=== PATIENT | female | born 1995 | race Caucasian/White ===

== ENCOUNTER → 2017-10-11 | Emergency (ER) | payer OTHER ==
[~2017-10-11] VITALS: Ht 167.6 cm; Wt 90.7 kg
[~2017-10-11] MED LIST: AVIANE1 EACH PO; COMPAZINE25 MG PR; CRYSELLE1 EACH PO; CYCLOBENZAPRINE5 MG PO; IMITREX25 MG PO; MAXALT MLT10 MG PO; MEDROL4 MG PO; NORCO 5-325 TA1 EACH PO; NORTRIPTYLINE H10 MG PO; OXYCODONE-ACET1 EAC1 PO; PHENERGAN12.5 MG RC; PROPRANOLOL HCL20 MG PO; REGLAN10 MG PO; TRAZODONE HCL100 MG PO; ULTRAM50 MG PO; ZOFRAN ODT4 MG PO
== END ==
LOC: ED 13:38
DX: M62.830 Muscle spasm of back (principal); Z91.030 Bee allergy status; Z88.5 Allergy status to narcotic agent; Z79.899 Other long term (current) drug therapy
CPT/HCPCS: 72100; 96372; 99283; J1885

== ENCOUNTER 2018-08-29 12:12 | Day surgery (SDC) | payer OTHER ==
[~2018-08-29] VITALS: Ht 167.6 cm; Wt 103.0 kg
--- NOTE | 2018-08-29 13:47 | NUR ---
08/29/18 1347 Arlene Alex 1342-PATIENT ARRIVED TO PACU ON 2L NC PATIENT AWAKE DROWSY DENIES PAIN OR NAUSEA. ABLE TO REPOSITION SELF IN BED. RR EVEN. ENCOURAGED TO PASS GAS.
--- NOTE | 2018-08-31 11:43 | OR ---
[facility] [address], [place] [address] Signed DATE OF OPERATION: 08/29/2018 SURGEON: Antonia Lorenzo MD PREOPERATIVE DIAGNOSES: 1. Recently persistent nausea and vomiting (postprandial with negative CT scan and negative ultrasound). 2. History of normal gastric emptying study. 3. Empiric treatment with low-FODMAP diet with improvement. 4. Decreasing symptoms of diarrhea and left lower abdominal pain. POSTOPERATIVE DIAGNOSES: 1. Normal upper endoscopy, minimally mild antral gastritis, no sign of ulcer. 2. Normal colon and ileum (ileal lymphoid hyperplasia without pathologic findings). PROCEDURES PERFORMED: 1. Esophagogastroduodenoscopy with biopsy. 2. Total colonoscopy to cecum with biopsy of ileum, colon, and rectum. ANESTHESIA: Intravenous sedation, fentanyl 200 mcg and Versed 10 mg. INDICATION: This 23-year-old white woman is a patient of LEXUS Marquez, and works part-time as a clinical nursing manager at [employer]. She has had longstanding episodic diarrhea with left lower abdominal pain as well as some episodes of upper abdominal pain, particularly left upper quadrant. She has been evaluated in [address] Corrales, social research assistant in [facility]. She has undergone upper endoscopy and colonoscopy. Colonoscopy normal and upper endoscopy showing some retained food in the stomach with a clinical diagnosis of possible gastric emptying problems. A solid fit emptying study however was normal. Nevertheless, she was treated as if she had a solid food emptying problem and failed domperidone treatment as well as other medications. Her last evaluation by social research assistant was in 2017. 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 She is admitted at this time to undergo upper endoscopy and colonoscopy to assess for inflammatory bowel disease, peptic disease, or other problem that may account for persistent symptoms. Most notably recently, her main problem is postprandial nausea and vomiting. Electronically Signed By: ANTONIA LORENZO MD 08/31/18 1143 PATIENT NAME: WONG TREVIÑO OPERATIVE REPORT DATE OF : [birth year] REPORT #: [id number] PHYSICIAN: ANTONIA LORENZO MD PCP: SAI DEAN PAC REPORT IS CONFIDENTIAL AND NOT TO BE RELEASED WITHOUT AUTHORIZATION [facility] [address], [place] [address] Signed FINDINGS: Upper endoscopy was essentially normal. The flap valve was reasonably good. There was mild antral gastritis. Certainly, no ulcer, no neoplasm, no varices. I saw no obvious signs of dysmotility, specifically no bezoar, but there was a small amount of bile in the stomach initially. On colonoscopy, the prep was quite good. Complete colonoscopy was undertaken to the cecum. Intubation of the ileum was accomplished as well. The ileum had lymphoid hyperplasia, but no sign of inflammatory bowel disease. The remaining colon and rectum were normal. Random biopsies were taken to assess for lymphocytic colitis. DESCRIPTION OF PROCEDURE: The patient was brought to the endoscopy suite and given topical Hurricaine spray, hypopharyngeal anesthesia, and placed in lateral decubitus position. She was given intravenous sedation to the point of slurred speech and nystagmus with full cardiopulmonary monitoring. Additional sedation was given as needed throughout both procedures. A bite block was placed and an Olympus video upper endoscope passed in the hypopharynx. The vocal cords appeared normal. Scope was advanced into the esophagus. Throughout its length, the esophagus was normal. There was no sign of Sunshine epithelium, stricture, neoplasm, or varices. The scope was advanced to the stomach, which was insufflated with air. There was small amount of bile within the stomach, which was suctioned free. There was no sign of retained food or bezoar. There was a fine reticular pattern of the antrum suggestive of mild chronic gastritis, but nothing serious and certainly no ulceration or neoplasm. Pylorus was normal. Scope was passed through into the duodenum, which was normal. Biopsies were taken there to assess for celiac disease. The scope was withdrawn to the antrum and biopsies obtained once again for both CATHY and pathologic testing. Retroflexed view was undertaken. Withdrawal of scope showing a reasonably good flap valve. No sign of large hiatal hernia. The scope was withdrawn to the distal esophagus and biopsies were taken of normal esophageal mucosa. The midportion was biopsied as well. The scope was removed and plans were made for colonoscopy. The table was rotated and additional sedation given. Digital rectal examination was essentially normal. An Olympus video colonoscope was passed into the rectum and manipulated throughout the colon ultimately intubating the cecum itself. She was somewhat uncomfortable with passage of the scope in certain areas, particularly the sigmoid, for which additional sedation was given. Once the cecum was obtained, photographs were taken and biopsies Electronically Signed By: ANTONIA LORENZO MD 08/31/18 1143 PATIENT NAME: WONG TREVIÑO OPERATIVE REPORT DATE OF : [birth year] REPORT #: [id number] PHYSICIAN: ANTONIA LORENZO MD PCP: SAI DEAN PAC REPORT IS CONFIDENTIAL AND NOT TO BE RELEASED WITHOUT AUTHORIZATION [place] [phone] Signed taken of the cecum. With minimal effort, the ileum was ultimately intubated showing lymphoid hyperplasia. The scope was passed at least 10 cm into the ileum. There was no sign of stricture, neoplasm, or ulceration. Scope was withdrawn to the cecum and after biopsies had occurred scope further withdrawn. The remaining colon was entirely normal without sign of polyps, diverticular formation, or cancer. Biopsy was taken of the rectum to assess for lymphocytic colitis. There was minimal internal hemorrhoidal change, no sign of bleeding or other problem. Scope was straightened and withdrawn, removed, and the patient was taken to recovery room in good condition. CONCLUDING DIAGNOSIS: Though she may likely have irritable bowel syndrome, diarrhea predominant, I do wonder somewhat about her gallbladder still. Consideration will be made for a CCK-HIDA test as her ultrasound of the gallbladder has been normal as has been a gastric emptying study. MD JADA Sanders/ANN MARIE /[id number] cc: LEXUS Marquez Copies: ~ Electronically Signed By: ANTONIA LORENZO MD 08/31/18 1143 PATIENT NAME: WONG TREVIÑO DOMINGUEZ OPERATIVE REPORT DATE OF : [birth year] REPORT #: [id number] PHYSICIAN: ANTONIA LORENZO MD PCP: SAI DEAN PAC REPORT IS CONFIDENTIAL AND NOT TO BE RELEASED WITHOUT AUTHORIZATION
== END 2018-08-29 14:48 | disposition home or self-care (01) ==
LOC: OPS 12:12 → DS 12:12 → OPS 13:00
PROVIDERS: Surgery
PROC: 0DBP8ZX Excision of Rectum, Via Natural or Artificial Opening Endoscopic, Diagnostic (ICD-10-PCS; 2018-08-29)
PROC: 0DBB8ZX Excision of Ileum, Via Natural or Artificial Opening Endoscopic, Diagnostic (ICD-10-PCS; 2018-08-29)
PROC: 0DBM8ZX Excision of Descending Colon, Via Natural or Artificial Opening Endoscopic, Diagnostic (ICD-10-PCS; 2018-08-29)
PROC: 0DB98ZX Excision of Duodenum, Via Natural or Artificial Opening Endoscopic, Diagnostic (ICD-10-PCS; 2018-08-29)
PROC: 0DB78ZX Excision of Stomach, Pylorus, Via Natural or Artificial Opening Endoscopic, Diagnostic (ICD-10-PCS; 2018-08-29)
PROC: 0DB28ZX Excision of Middle Esophagus, Via Natural or Artificial Opening Endoscopic, Diagnostic (ICD-10-PCS; 2018-08-29)
PROC: 0DB38ZX Excision of Lower Esophagus, Via Natural or Artificial Opening Endoscopic, Diagnostic (ICD-10-PCS; 2018-08-29)
PROC: 0DBH8ZX Excision of Cecum, Via Natural or Artificial Opening Endoscopic, Diagnostic (ICD-10-PCS; principal; 2018-08-29 13:00)
PROC: 0DBN8ZX Excision of Sigmoid Colon, Via Natural or Artificial Opening Endoscopic, Diagnostic (ICD-10-PCS; 2018-08-29 13:00)
DX: R19.7 Diarrhea, unspecified (principal); K29.70 Gastritis, unspecified, without bleeding; K63.89 Other specified diseases of intestine; F32.9 Major depressive disorder, single episode, unspecified; I10 Essential (primary) hypertension; G43.909 Migraine, unspecified, not intractable, without status migrainosus; Z88.5 Allergy status to narcotic agent; Z98.890 Other specified postprocedural states
CPT/HCPCS: 99153; G0500; J2250; J3010; J7120

== ENCOUNTER 2018-10-17 05:45 | Day surgery (SDC) | payer OTHER ==
[~2018-10-17] VITALS: Ht 167.6 cm; Wt 99.8 kg
[2018-10-17] MEDS ORDERED: OMEPRAZOLE MAGN20 MG PO (06:07)
--- NOTE | 2018-10-17 08:59 | NUR ---
10/17/18 0859 Arlene Alex 0850-PATIENT ARRIVED TO PACU ON RA. RR 24 PATIENT REACTIVE TO VOICE OPENS EYES PUPILS DILATED. PATIENT SHAKES HEAD NO TO PAIN. 4 LAP SITES TO ABDOMEN CDI BANDAID TO RLQ SITE. ST.
[2018-10-17] MEDS ORDERED: IBUPROFEN600 MG PO (09:01)
[2018-10-17] MEDS ORDERED: MAPAP325 MG PO (09:01)
[2018-10-17] MEDS ORDERED: OXYCODON-ACETA1 EAC2 PO (09:02)
--- NOTE | 2018-10-17 09:43 | NUR ---
PT IS BACK TO FROM PACU. SHE IS AWAKE, REPORTIN LEFT SHOULDER PAIN. MOM IS AT THE BEDSIDE, MASSAGING LEFT SHOULDER, PT STATES THIS IS HELPFUL WITH THE PAIN. SHE REPORTS PAIN A 4/10 IN HER ABDOMEN, BUT STATES THAT THIS IS A TOLERABEL LEVEL. SHE IS ABLE TO TAKE SIPS OF WATER WITHOUT NAUSEA. CALL LIGHT WITHIN REACH. NO ADDITIONAL NEEDS AT THIS TIME. WILL CONTINUE TO MONITOR. DC INSTRUCTIONS ARE DISCUSSED WITH PT AND MOM.
--- NOTE | 2018-10-17 10:47 | NUR ---
LE 1030: PT IS ASSISTED UP OOB TO THE BATHROOM. SHE IS ABLE TO VOID 250ML OF YELLOW URINE. SHE AMBULATES BY HERSELF BACK TO HER ROOM. SHE HAS MASHED POTATOES AND GRAVY. DEFERRING HOURLY VITAL SIGNS TO LET HER EAT, THEN WILL CHECK ON HER. BOYFRIEND, AUDREY, IS AT THE BEDSIDE. CALL LIGHT WITHIN REACH.
--- NOTE | 2018-10-17 11:07 | NUR ---
PT REPORTS THAT PAIN IS IMPROVING. HER BOYFRIEND AND FRIEND ARE AT THE BEDSIDE. CALL LIGHT WITHIN REACH. PT IS HAVING A HARD TIME EATING HER MASHED POTATOES, STATES IT IS UNCOMFORTABLE/PAIN TO SIT FORWARD TO EAT THEM. NO ADDITIONAL NEEDS AT THIS TIME. WILL CONTINUE TO MONITOR.
--- NOTE | 2018-10-17 11:08 | NUR ---
PT INDICATES THAT SHE IS READY TO GO HOME.
--- NOTE | 2018-10-17 11:35 | NUR ---
PT'S ABDOMINAL SITES ARE REINFORCED WITH GAUZE AND PAPER TAPE. SHE IS GIVEN VERBAL DC INSTRUCTIONS, SHE VERBALIZES UNDERSTANDING. QUESTIONS ARE ASKED AND ANSWERED. SHE TRANSFERS HERSELF FROM STRETCHER TO WC, SHE ALSO TRANSFERS HERSELF FROM WC TO VEHICLE.
--- NOTE | 2018-10-17 18:42 | OR ---
[facility] [address] [place], [place] [address] Signed DATE OF OPERATION: 10/17/2018 SURGEON: Antonia Lorenzo MD PREOPERATIVE DIAGNOSES: 1. Chronic acalculous cholecystitis. 2. Obesity. POSTOPERATIVE DIAGNOSES: 1. Chronic acalculous cholecystitis. 2. Obesity. 3. Very small gallbladder with "strawberry mucosa.". PROCEDURES PERFORMED: 1. Laparoscopic cholecystectomy with intraoperative cholangiogram. 2. Surgeon-directed fluoroscopy. ANESTHESIA: General endotracheal; Jess Jose Armando, ROD TAPE OPERATOR; and local 20 mL of 0.25% Marcaine with epinephrine. 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 She has had problems of postprandial nausea and bloating and upper abdominal pain. She has undergone upper endoscopy and colonoscopy. She was previously ascribed to have gastroparesis elsewhere though a solid food emptying study was normal. She has recently undergone CCK-HIDA test, which showed an ejection fraction of 25% with reproduction of her symptoms of nausea and vomiting. It is notable that she has multiple family members with biliary disease. She is admitted at this time to undergo cholecystectomy for presumed acalculous cholecystitis understand well the risks of bleeding, infection, bile duct injury, need for open procedure, and of course failure to cure her symptoms. She understands and she wished to proceed. FINDINGS: The liver was somewhat fatty infiltrated without nodular changes in any way. The gallbladder was impressively small. Indeed, it was only the size of a medium sized strawberry itself. The gallbladder once excised did show strawberry mucosa (intense cholesterolosis). There were no stones. Cholangiogram was normal. There were no other findings of concern on intraabdominal examination. Electronically Signed By: ANTONIA LORENZO MD 10/17/18 1842 PATIENT NAME: WONG TREVIÑO OPERATIVE REPORT DATE OF : [birth year] REPORT #: [id number] PHYSICIAN: ANTONIA LORENZO MD PCP: SAI DEAN PAC REPORT IS CONFIDENTIAL AND NOT TO BE RELEASED WITHOUT AUTHORIZATION [facility] [address] [place], [place] [address] Signed DESCRIPTION OF PROCEDURE: The patient was brought to the operating room and given a general endotracheal anesthetic. Preoperative antibiotic Ancef was given and sequential compression device stockings used. After satisfactory anesthesia, the abdomen was prepared with a chlorhexidine solution and draped sterilely. An infraumbilical incision was made using an open Juana cannula technique. Pneumoperitoneum was achieved to a level of 14 mmHg of carbon dioxide gas. Intraabdominal inspection showed no sign of ascites or carcinomatosis. The gallbladder was impressively small. The liver had mild fatty infiltration. Three additional trocars were placed in usual configuration in the subxiphoid, right midclavicular, and right axillary line. The gallbladder was elevated cephalad and retracted laterally. With meticulous technique using a hook retractor, dissection of triangle of Calot was undertaken. Cystic arterial branch was identified, doubly clipped and divided. Ultimately, the cystic duct was well identified. Puncture of the gallbladder did allow for egress of clear bile, which was limited in its amount. A clip was applied across the gallbladder and cystic duct junction, and a transverse choledochotomy was made in the cystic duct. Retrograde milking of the duct showed a small amount of bile. Using the Caal type cholangiocatheter, intraoperative cholangiography was undertaken showing free flow of contrast in the biliary tree with prompt emptying into the duodenum. There was no sign of biliary anomaly or other problem. The cystic duct was triply clipped and divided, and the gallbladder dissected free in a retrograde fashion using electrocautery. The gallbladder was placed in an endobag and extracted through the infraumbilical port site without problem and examined on the back table affirming its very small size. The gallbladder was opened and a "strawberry mucosa" was noted with multiple nodular changes with cholesterolosis consistent with chronic cholecystitis. Irrigation was undertaken in subhepatic space. Once irrigation fluid was completely clear and freed, trocars were removed under direct visualization showing no sign of bleeding. The infraumbilical fascial incision was reapproximated with interrupted 0 Vicryl suture. All wounds were copiously irrigated with saline solution. Skin closed with interrupted 3-0 Vicryl. Steri-Strips were applied. The patient was ultimately extubated and transferred to recovery in good condition having suffered no complication. Sponge, needle, and counts reported as correct x3. Antonia Lorenzo MD /ZULEIKAL /[id number] Electronically Signed By: ANTONIA LORENZO MD 10/17/18 1842 PATIENT NAME: WONG TREVIÑO OPERATIVE REPORT DATE OF : [birth year] REPORT #: [id number] PHYSICIAN: ANTONIA LORENZO MD PCP: SAI DEAN PAC REPORT IS CONFIDENTIAL AND NOT TO BE RELEASED WITHOUT AUTHORIZATION [place] [phone] Signed cc: LEXUS Junior Copies: ~ Electronically Signed By: ANTONIA LORENZO MD 10/17/18 1842 PATIENT NAME: WONG TREVIÑO OPERATIVE REPORT DATE OF : [birth year] REPORT #: [id number] PHYSICIAN: ANTONIA LORENZO MD PCP: SAI DEAN PAC REPORT IS CONFIDENTIAL AND NOT TO BE RELEASED WITHOUT AUTHORIZATION
== END 2018-10-17 11:20 | disposition home or self-care (01) ==
LOC: DS 05:45
PROVIDERS: Surgery
PROC: BF13YZZ Fluoroscopy of Gallbladder and Bile Ducts using Other Contrast (ICD-10-PCS; 2018-10-17)
PROC: 0FT44ZZ Resection of Gallbladder, Percutaneous Endoscopic Approach (ICD-10-PCS; principal; 2018-10-17 06:45)
DX: K81.1 Chronic cholecystitis (principal); K76.0 Fatty (change of) liver, not elsewhere classified; I10 Essential (primary) hypertension; K21.9 Gastro-esophageal reflux disease without esophagitis; G43.909 Migraine, unspecified, not intractable, without status migrainosus; E66.3 Overweight; F33.8 Other recurrent depressive disorders; Z88.5 Allergy status to narcotic agent; Z83.79 Family history of other diseases of the digestive system; Z68.35 Body mass index [BMI] 35.0-35.9, adult; Z79.899 Other long term (current) drug therapy
CPT/HCPCS: 00790; 74300; J0131; J0690; J0735; J1100; J1644; J1885; J2250; J2405; J2704; J3010; J3475; J7120; Q9967

== ENCOUNTER 2019-12-30 18:22 | Emergency (ER) | payer OTHER ==
[~2019-12-30] VITALS: Ht 167.6 cm; Wt 99.8 kg
[~2019-12-30 18:22] MED LIST changes: +IBUPROFEN600 MG PO; +MAPAP325 MG PO; +OMEPRAZOLE MAGN20 MG PO; +OXYCODON-ACETA1 EAC2 PO
[2019-12-30] MEDS ORDERED: ULTRAM50 MG PO (20:10)
== END 2019-12-30 20:24 | disposition home or self-care (01) ==
LOC: ED 18:22
DX: S46.912A Strain of unspecified muscle, fascia and tendon at shoulder and upper arm level, left arm, initial encounter (principal); Z88.6 Allergy status to analgesic agent; Z91.030 Bee allergy status; Z79.899 Other long term (current) drug therapy; X58.XXXA Exposure to other specified factors, initial encounter
CPT/HCPCS: 73030; 99283-25

== ENCOUNTER 2023-06-29 | Inpatient (IN) | payer BC ==
[~2023-06-29] VITALS: Ht 167.6 cm; Wt 117.9 kg
--- NOTE | ~2023-06-29 | OR ---
[facility] [address] [place], [place] [address] Draft DATE OF OPERATION: 06/30/2023 SURGEON: Alysia Molina MD FAMILY LAW PARALEGAL: Bradford Abbott DO PREOPERATIVE DIAGNOSIS: Intrauterine at 39.5 weeks, gestational hypertension, failure to descend, persistent OP. POSTOPERATIVE DIAGNOSIS: Intrauterine at 39.5 weeks, gestational hypertension, failure to descend, persistent OP, delivered. PROCEDURE: Primary section of a lower segment transverse uterine incision. ANESTHESIA: Spinal. ESTIMATED BLOOD LOSS: 850 mL. DRAINS: Jha catheter. INDICATIONS AND FINDINGS: The patient is a 3, para 0, SAB 2, who was admitted at 39 and 4/7th weeks for induction secondary to gestational hypertension. She received several doses of Cytotec and with that, developed a regular contraction pattern and progressed with her cervix being now 3 cm. She underwent artificial rupture of membranes. Clear fluid was seen. She then progressed steadily through her labor and reached complete and began pushing at that time. She had been going natural other than a short time of nitrous. She pushed with extremely good effort for over 3 hours, but the baby did not descend beyond +1 station. Also, the baby was developing some recurrent variables and the decision was made to proceed with a section. It was not felt safe to undergo a vacuum delivery. She was taken to the operating room where she was delivered of a little boy from the ROP position with Apgars of 7 and 9 and weight of 8 pounds. There was bilateral extensions of the uterine incision, but otherwise the uterus, tubes, ovaries, PATIENT NAME: WONG GARZA OPERATIVE REPORT DATE OF : [birth year] REPORT #: [id number] PHYSICIAN: ALYSIA MOLINA MD PCP: SAI DEAN PAC REPORT IS CONFIDENTIAL AND NOT TO BE RELEASED WITHOUT AUTHORIZATION [facility] [address] [place], [place] [address] Draft placenta were normal. DESCRIPTION OF PROCEDURE: The patient was prepped and draped in the supine position. A Pfannenstiel skin incision was made and carried down through the fascia. The incision was extended laterally. The inferior and superior fascial flaps were then created. The muscles were bluntly divided and the peritoneum opened bluntly and the incision extended bluntly. The Janak retractor was placed. The uterine incision was made at the upper aspect of the peritoneal reflection. The baby was delivered with some difficulty, given its deep station, but was handed off to the pediatric staff in attendance. There was thick meconium on entering the uterus. The placenta was removed manually and the uterus explored with a lap tape assuring no remaining fragments. The edges of the incision were identified and the bilateral extensions noted. These were separately closed. The extensions were identified and running locking stitches of 0 Monocryl were used to bring the extensions up to the original incision. This was done bilaterally. Following this, remaining uterine incision was closed with a running locking stitch of 0 Monocryl. A 2nd layer was placed using the 0 Monocryl in an imbricating manner. The area was copiously irrigated, inspected, and there was a bleeding point still on the patient's right side and another suture of 0 Monocryl was placed and ligating the uterine arteries. Following this, the abdomen was irrigated, inspected, good hemostasis was noted. Some bleeding points on the peritoneal edge were controlled with cautery. Because of the extensions, Luis Miguel was used in these areas as well as along the uterine incision to aid in hemostasis. The retractor was removed and the peritoneum identified. The peritoneum was closed with a running suture of 3-0 Vicryl. The muscles were brought together in the midline with interrupted sutures of 0 Vicryl. Bleeding points were controlled with cautery. This layer was irrigated, inspected and good hemostasis noted. The remaining Luis Miguel was sprinkled over the muscle to further aid in hemostasis. The fascia was closed from each angle to the midline with a running suture of 0 Vicryl. The subcu space was irrigated and bleeding points controlled with cautery. The space was closed with interrupted sutures of 3-0 Vicryl. The skin was closed with sunny. All sponge and needle counts were correct. She tolerated the procedure well and was taken to the recovery room in good condition. MD HARDIK Chamberlain/MODL /[id number] PATIENT NAME: WONG GARZA OPERATIVE REPORT DATE OF : [birth year] REPORT #: [id number] PHYSICIAN: ALYSIA MOLINA MD PCP: SAI DEAN PAC REPORT IS CONFIDENTIAL AND NOT TO BE RELEASED WITHOUT AUTHORIZATION [address] [address] Draft Copies: ~ PATIENT NAME: WONG GARZA DOMINGUEZ OPERATIVE REPORT DATE OF : [birth year] REPORT #: [id number] PHYSICIAN: ALYSIA MOLINA MD PCP: SAI DEAN PAC REPORT IS CONFIDENTIAL AND NOT TO BE RELEASED WITHOUT AUTHORIZATION
[2023-06-29 00:37] LABS: HEMATOCRIT 38.6 % (35.0-50.0); HEMOGLOBIN 13.2 g/dL (12.0-18.0); MCH 27.9 (27-36); MCHC 34.1 g/dl (30-36); MCV 81.7 fl (81-99); RBC 4.72 M/ul (4.3-5.7)
[2023-06-29 01:14] LABS: AMPHETAMINES, URINE NEGATIVE (NEGATIVE); BARBITURATES, URINE NEGATIVE (NEGATIVE); BENZODIAZEPINE, URINE NEGATIVE (NEGATIVE); BUPRENORPHINE, URINE NEGATIVE (NEGATIVE); CANNABINOID, URINE NEGATIVE (NEGATIVE); COCAINE, URINE NEGATIVE (NEGATIVE); ECSTASY, URINE NEGATIVE (NEGATIVE); FENTANYL, URINE NEGATIVE (NEGATIVE); METHADONE, URINE NEGATIVE (NEGATIVE); OPIATES, URINE NEGATIVE (NEGATIVE); OXYCODONE, URINE NEGATIVE (NEGATIVE); PHENCYCLIDINE, URINE NEGATIVE (NEGATIVE)
[2023-06-29 03:12] LABS: ABO A; RH NEGATIVE
[2023-06-29 03:13] LABS: ANTIBODY SCREEN POSITIVE
[2023-06-29 06:15] LABS: ANTIBODY IDENTIFICATION SEE COMMENTS
[2023-06-29 07:00] VITALS: BP 125/82
--- NOTE | 2023-06-29 13:30 | PR ---
[facility] [address] [facility] [place], [place] [address] Signed Progress Notes IP Datetime Report Generated by DAMARIS: 06/29/2023 13:30 PROGRESS NOTES: [id number] Impression: Normal Progression of Labor; Reassuring Heart Rate Procedures: Artificial ROM; Sterile Vag Exam Plan: Continue Present Management VITAL SIGNS: [id number] Vital Signs: Reviewed; Within Normal Limits EXAM: [id number] Dilatation: 3.0 Effacement: 80 Station: -2 Contractions: q 1 to 4 min MEMBRANES: [id number] Comments: Getting more uncomfortable. She is progressing. FETUS A: [id number] FHR Baseline: 130 Variability: Moderate 6-25bpm Accelerations: 15X15 Decelerations: None FHR Category: Category I Presentation: Vertex FETUS B: [id number] Signing Physician: Alysia Molina MD Copies: ~ *Electronically Signed* 06/29/23 1330 ALYSIA MOLINA MD PATIENT NAME: WONG GARZA PROGRESS NOTE DATE OF : [birth year] PHYSICIAN: ALYSIA MOLINA MD RPT #: [id number] REPORT IS CONFIDENTIAL AND NOT TO BE RELEASED WITHOUT AUTHORIZATION
--- NOTE | 2023-06-29 18:00 | PR ---
[facility] [address] [facility] [place], [place] [address] Signed Progress Notes IP Datetime Report Generated by CPSavita: 06/29/2023 18:00 PROGRESS NOTES: [id number] Impression: Normal Progression of Labor Procedures: Sterile Vag Exam Plan: Continue Present Management VITAL SIGNS: [id number] Vital Signs: Reviewed; Within Normal Limits EXAM: [id number] Dilatation: 4.5 Effacement: 100 Station: -2 Contractions: q 2 to 3 min MEMBRANES: [id number] Comments: Getting more uncomfortable. Progressing some. Will try the tub again. FETUS A: [id number] FHR Baseline: 130 Variability: Moderate 6-25bpm Accelerations: 15X15 Decelerations: None FHR Category: Category I Presentation: Vertex FETUS B: [id number] Signing Physician: Alysia Molina MD Copies: ~ *Electronically Signed* 06/29/23 1800 ALYSIA MOLINA MD PATIENT NAME: WONG GARZA PROGRESS NOTE DATE OF : [birth year] PHYSICIAN: ALYSIA MOLINA MD RPT #: [id number] REPORT IS CONFIDENTIAL AND NOT TO BE RELEASED WITHOUT AUTHORIZATION
--- NOTE | 2023-06-29 23:36 | PR ---
[facility] [address] [facility] [place], [place] [address] Signed Progress Notes IP Datetime Report Generated by CPSavita: 06/29/2023 23:36 PROGRESS NOTES: [id number] Impression: Normal Progression of Labor Procedures: Sterile Vag Exam Plan: Continue Present Management Other Plans: trial nitrous VITAL SIGNS: [id number] Vital Signs: Reviewed; Within Normal Limits EXAM: [id number] Dilatation: 4.5 Effacement: 100 Station: 0 Contractions: q 2 to 3 min MEMBRANES: [id number] Comments: Has progressed well but unable to stop involuntarily pushing. The remaining cervix cannot be reduced. She has been doing natural labor and has done well but because of the involuntary pushing, I think this is contributing to the cervical swelling. Will try nitrous to see if this can help avoid the pushing and allow her to get to complete. FETUS A: [id number] FHR Baseline: 130 Variability: Moderate 6-25bpm Accelerations: 15X15 Decelerations: Early; Variable FHR Category: Category II Presentation: Vertex FETUS B: [id number] Signing Physician: Alysia Molina MD Copies: ~ *Electronically Signed* 06/29/23 2336 ALYSIA MOLINA MD PATIENT NAME: WONG GARZA PROGRESS NOTE DATE OF : [birth year] PHYSICIAN: ALYSIA MOLINA MD RPT #: [id number] REPORT IS CONFIDENTIAL AND NOT TO BE RELEASED WITHOUT AUTHORIZATION
--- NOTE | 2023-06-30 03:05 | PR ---
[facility] [address] [place], [place] [address] Signed Progress Notes IP Datetime Report Generated by CPN: 06/30/2023 03:05 PROGRESS NOTES: [id number] Impression: Reassuring Heart Rate Other Impressions: failure to descend Procedures: Sterile Vag Exam Plan: Deliver- Section Other Plans: trial nitrous Informed Consent Obtain: Section Delivery VITAL SIGNS: [id number] Vital Signs: Reviewed; Within Normal Limits EXAM: [id number] Dilatation: 10.0 Effacement: 100 Station: 0 Contractions: q 2 to 3 min MEMBRANES: [id number] Comments: Pushing with excellent effort but minimal descent after pushing for over 2 hrs. I do not feel comfortable using vacuum at this station. I feel section is safest route. PARQ done with pt and . Will proceed as soon as OR crew arrives. FETUS A: [id number] FHR Baseline: 130 Variability: Moderate 6-25bpm Accelerations: 15X15 Decelerations: Variable FHR Category: Category II Presentation: Vertex FETUS B: [id number] Signing Physician: Alysia Molina MD Copies: ~ *Electronically Signed* 06/30/23 030 ALYSIA MOLINA MD PATIENT NAME: WONG GARZA PROGRESS NOTE DATE OF : [birth year] PHYSICIAN: ALYSIA MOLINA MD RPT #: [id number] REPORT IS CONFIDENTIAL AND NOT TO BE RELEASED WITHOUT AUTHORIZATION
--- NOTE | 2023-06-30 05:23 | NUR ---
06/30/23 0523 Teagan Zaidi 0456- PT TO ROOM VIA BED FROM OR. PT IS A&O X4. PT RESPIRATIONS EVEN AND UNLABORED, O2 >90% VIA PULSE OX. PT REPORTS NO PAIN, NAUSEA, DIZZINESS, OR SOB. IV SITE WNL, FLUIDS INFUSING DIRECTED. SCD'S IN PLACE, YUN DRAINING TO GRAVITY. FUNDAL CHECK PERFORMED W/MILK RECEIVER. Cesar QUIROZ MD IN ROOM DISCUSSING OPERATION W/PT. PT AWAKE AND ASKING QUESTIONS APPROPRIATELY, AT BEDSIDE W/BABY. RESPIRATIONS EVEN AND UNLABORED, NO SIGNS OF DISTRESS. 0518- BABY TO CHEST FOR SKIN TO SKIN WITH MOTHER. PT REPORTS NO PAIN, NAUSEA, DIZZINESS, OR SOB AT THIS TIME. PT REPORTS MINOR TINGLING IN RT LEG BUT UNABLE TO WIGGLE TOES AT THIS TIME. RESPIRATIONS EVEN AND UNLABORED, NO SIGNS OF DISTRESS.
[2023-06-30 05:34] VITALS: BP 141/65
[2023-07-01 05:27] LABS: HEMATOCRIT 29.6 % (35.0-50.0); MCH 28.1 (27-36); MCV 82.7 fl (81-99); RBC 3.58 M/ul (4.3-5.7); RDW 14.8 (10.5-15.0)
[2023-07-01 06:22] LABS: ABO A
[2023-07-01 06:23] LABS: ANTIBODY SCREEN NEGATIVE; FETAL HEMOGLOBIN SCREEN NEGATIVE; RH NEGATIVE
[2023-07-01 06:27] LABS: RHIG DOSE 1; RHIG STATUS CANIDATE
--- NOTE | 2023-07-01 10:12 | PR ---
[facility] [address] [place], [place] [address] Signed PP Progress Notes Datetime Report Generated by CPN: 07/01/2023 10:12 SUBJECTIVE: [id number] Pain: Within Normal Limits Nausea/Vomiting: Denies Vital Signs: [id number] Vital Signs: Reviewed; Within Normal Limits EXAM: Ongoing Cardiovascular: Normal Respiratory: Normal Abdomen/Uterus: Abnormal Lochia: Normal Vulva/Perineum: Not Done Breasts: Not Done CVA Tenderness: Not Done Extremities: Normal Incision: Normal Progress: Abnormal Exam Comments: Abdomen with active BS. Fundus firm, NT @ U-1. H/H 05/27.6, WBC 18.6k, plat 281k IMPRESSION/PLAN/PROCEDURES: [id number] Impression: Normal Progression Plan: Continue Present Management Procedures: Rhogam Progress Notes: Doing well overall. She is trying to pump exclusively but not c/w pumping. Has used a friend's breast milk as baby did not like the formula. She is encouraged to pump more consistently and frequently and to push her fluids. Signing Physician: Alysia Molina MD Copies: ~ *Electronically Signed* 07/01/23 1012 ALYSIA MOLINA MD PATIENT NAME: WONG GARZA PROGRESS NOTE DATE OF : [birth year] PHYSICIAN: ALYSIA MOLINA MD RPT #: [id number] REPORT IS CONFIDENTIAL AND NOT TO BE RELEASED WITHOUT AUTHORIZATION
--- NOTE | 2023-07-02 08:38 | PR ---
[facility] [address] [facility] [place], [place] [address] Signed PP Progress Notes Datetime Report Generated by CPN: 07/02/2023 08:38 SUBJECTIVE: [id number] Pain: Within Normal Limits Nausea/Vomiting: Denies Flatus: Yes Bowel Movement: Yes Vital Signs: [id number] Vital Signs: Reviewed; Within Normal Limits EXAM: Ongoing Cardiovascular: Not Done Respiratory: Not Done Abdomen/Uterus: Abnormal Lochia: Normal Vulva/Perineum: Not Done Breasts: Not Done CVA Tenderness: Not Done Extremities: Normal Incision: Normal Progress: Normal Exam Comments: Abdomen with active BS. Fundus firm, NT @ U-2. IMPRESSION/PLAN/PROCEDURES: [id number] Impression: Normal Progression Plan: Remove [place]; Discharge Procedures: Rhogam Progress Notes: Doing well. She is ready for D/C. Signing Physician: Alysia Molina MD Copies: ~ *Electronically Signed* 07/02/23837 ALYSIA MOLINA MD PATIENT NAME: WONG GARZA DOMINGUEZ PROGRESS NOTE DATE OF : [birth year] PHYSICIAN: ALYSIA MOLINA MD RPT #: [id number] REPORT IS CONFIDENTIAL AND NOT TO BE RELEASED WITHOUT AUTHORIZATION
== END 2023-07-02 10:55 | disposition home or self-care (01) | DRG 788 ==
LOC: FBC
PROVIDERS: Obstetrics & Gynecology; ADMIT Obstetrics & Gynecology; ATTEND Obstetrics & Gynecology
PROC: 3E0P7VZ Introduction of Hormone into Female Reproductive, Via Natural or Artificial Opening (ICD-10-PCS; 2023-06-30)
PROC: 10907ZC Drainage of Amniotic Fluid, Therapeutic from Products of Conception, Via Natural or Artificial Opening (ICD-10-PCS; 2023-06-30)
PROC: 10D00Z1 Extraction of Products of Conception, Low, Open Approach (ICD-10-PCS; principal; 2023-06-30 03:45)
DX: O13.4 Gestational [pregnancy-induced] hypertension without significant proteinuria, complicating childbirth (principal); Z37.0 Single live birth; Z3A.39 39 weeks gestation of pregnancy; O32.4XX0 Maternal care for high head at term, not applicable or unspecified; O77.0 Labor and delivery complicated by meconium in amniotic fluid; O99.214 Obesity complicating childbirth; O99.344 Other mental disorders complicating childbirth; F32.A Depression, unspecified; F41.9 Anxiety disorder, unspecified; O99.284 Endocrine, nutritional and metabolic diseases complicating childbirth; E03.9 Hypothyroidism, unspecified; O99.62 Diseases of the digestive system complicating childbirth; K21.9 Gastro-esophageal reflux disease without esophagitis; O99.52 Diseases of the respiratory system complicating childbirth; J45.909 Unspecified asthma, uncomplicated
CPT/HCPCS: 01961; 36415; 80307; 82803; 83030; 85027; 86850; 86870; 86900; 86901; A9270; J0456; J0690; J1100; J1650; J1885; J2274; J2405; J2540; J2590; J2790; J2795; J3010; J7060

== ENCOUNTER 2024-07-07 08:22 | Emergency (ER) | payer BC ==
[~2024-07-07] VITALS: Ht 165.1 cm; Wt 108.5 kg
[2024-07-07] MEDS ORDERED: DESVENLAFAXINE50 MG PO (08:36)
[2024-07-07] MEDS ORDERED: OMEPRAZOLE10 MG PO (08:36)
[2024-07-07] MEDS ORDERED: LEVOTHYROXINE25 MC1 PO (08:37)
[2024-07-07] MEDS ORDERED: ZYRTEC10 M3 PO (08:37)
[2024-07-07 09:34] VITALS: BP 135/82
== END 2024-07-07 09:34 | disposition home or self-care (01) ==
LOC: ED 08:22
DX: S40.012A Contusion of left shoulder, initial encounter (principal); S60.212A Contusion of left wrist, initial encounter; Z88.5 Allergy status to narcotic agent; Z88.8 Allergy status to other drugs, medicaments and biological substances; Z91.030 Bee allergy status; Z79.899 Other long term (current) drug therapy; Z79.890 Hormone replacement therapy
CPT/HCPCS: 73030; 73110; 99284

== ENCOUNTER 2025-03-27 08:51 | Emergency (ER) | payer BC ==
[~2025-03-27] VITALS: Ht 165.1 cm; Wt 110.0 kg
[~2025-03-27 08:51] MED LIST changes: +DESVENLAFAXINE50 MG PO; +LEVOTHYROXINE25 MC1 PO; +OMEPRAZOLE10 MG PO; +ZYRTEC10 M3 PO
[2025-03-27 09:35] LABS: BASOPHILS 0.1 % (0.1-1.2); EOSINOPHILS 0.1 % (0.7-5.8); LYMPHOCYTES 7.9 % (19.3-51.7); MCH 27.9 PG (25.6-32.2); MCHC 33.8 g/dL (32.2-35.5); MCV 82.5 fL (79.4-94.8); MONOCYTES 3.6 % (4.7-12.5); NEUTROPHILS 87.9 % (34.0-71.1); RBC 4.56 M/uL (3.93-5.22)
[2025-03-27 09:52] LABS: ALT (SGPT) 28.0 U/L (14-59); AST (SGOT) 11.0 U/L (15-37); GLOMERULAR FILTRATION RATE,EST 120.0 mL/min (>60); PROTEIN, TOTAL 7.6 g/dL (6.4-8.2); UREA NITROGEN 16.0 mg/dL (7-18)
[2025-03-27] MEDS ORDERED: PROCHLORPERAZINE EDISYLATE 10 MG/2 ML VIAL IV ONE (10:00)
[2025-03-27 10:30] LABS: BLOOD/HGB, URINE LARGE (Negative); KETONE, URINE NEGATIVE (Negative); LEUK ESTERASE, URINE NEGATIVE (negative); NITRITE, URINE NEGATIVE (negative)
[2025-03-27 10:37] LABS: CRYSTALS, URINE NONE SEEN (0-1+)
[2025-03-27 10:38] LABS: BACTERIA, URINE RARE /hpf (negative); CASTS, URINE NONE SEEN \\lpf; REFLEX CULTURE, URINE No (No)
[2025-03-27] MEDS ORDERED: REGLAN10 MG PO (12:09)
[2025-03-27 12:18] VITALS: BP 112/72
== END 2025-03-27 12:19 | disposition home or self-care (01) ==
LOC: ED 08:51
PROVIDERS: Emergency Medicine
DX: O90.89 Other complications of the puerperium, not elsewhere classified (principal); R51.9 Headache, unspecified; I10 Essential (primary) hypertension; E03.9 Hypothyroidism, unspecified; K21.9 Gastro-esophageal reflux disease without esophagitis; Z88.8 Allergy status to other drugs, medicaments and biological substances; Z88.5 Allergy status to narcotic agent; Z91.030 Bee allergy status; Z79.890 Hormone replacement therapy; Z79.899 Other long term (current) drug therapy
CPT/HCPCS: 36415; 70450; 80053; 81001; 85025; 96374; 96375; 99284-25; J0780; J1200